=== PATIENT | male | born 1935 | race African-American/Black ===

== ENCOUNTER 2017-06-27 10:40 | Inpatient (IN) | payer OTHER ==
[~2017-06-27] VITALS: Ht 167.6 cm; Wt 85.3 kg
[2017-06-27] MEDS ORDERED: SODIUM CHLORIDE 0.9% 500 ML IV ONE (10:59)
[2017-06-27 11:31] LABS: BASOPHILS % 0.4 % (0.0-2.0); EOSINOPHILS % 2.9 % (0.0-5.0); HEMATOCRIT. 44.1 % (42.0-52.0); HEMOGLOBIN. 14.5 g/dL (14.0-18.0); LYMPHOCYTES % 25.1 % (20.0-50.0); MEAN CORPUSCULAR HEMOGLOBIN 28.1 pg (28.0-32.0); MEAN CORPUSCULAR VOLUME 85.7 fL (80.0-94.0); MEAN PLATELET VOLUME 9.6 fl (7.4-10.4); MONOCYTES % 10.5 % (2.0-8.0); NEUTROPHILS % 61.1 % (40.0-76.0); PLATELET 176 x1000/uL (130-400); RED BLOOD CELL COUNT 5.14 mill/uL (4.7-6.1); RED CELL DISTRIBUTION WIDTH 14.5 % (11.6-14.6)
[2017-06-27 11:41] LABS: CHLORIDE 107 mEq/L (98-107)
[2017-06-27 13:19] LABS: CLARITY URINE CLEAR (CLEAR); COLOR URINE YELLOW (YELLOW); KETONES URINE NEGATIVE (NEGATIVE); LEUKOCYTE ESTERASE URINE NEGATIVE (NEGATIVE); NITRITE URINE NEGATIVE (NEGATIVE); OCCULT BLOOD URINE NEGATIVE (NEGATIVE); PH URINE 6.5 (4.5-8.0); PROTEIN URINE NEGATIVE (NEGATIVE); SPECIFIC GRAVITY URINE 1.018 (1.005-1.030)
[2017-06-27] MEDS ORDERED: CLONIDINE 0.1MG TABLET PO PRN (14:00)
[2017-06-27] MEDS ORDERED: ACETAMINOPHEN 325MG TABLET PO PRN (14:00)
[2017-06-27] MEDS ORDERED: NITROGLYCERIN 0.4MG TABLET SL SL PRN (14:00)
[2017-06-27] MEDS ORDERED: DOCUSATE SODIUM 100MG CAPSULE PO PRN (14:00)
[2017-06-27] MEDS ORDERED: DIPHENHYDRAMINE 50MG/ML VIAL IV PRN (14:00)
[2017-06-27] MEDS ORDERED: GUAIFENESIN 200MG/10ML SUGAR FREE UDC PO PRN (14:00)
[2017-06-27] MEDS ORDERED: IPRATROPIUM/ALBUTEROL 0.5-3(2.5)MG/3ML NEB INH PRN (14:00)
[2017-06-27] MEDS ORDERED: MAGNESIUM/ALUMINUM HYDROXIDE/SIMETHICONE 30ML UDC PO PRN (14:00)
[2017-06-27 14:57] LABS: T4 FREE 0.73 ng/dL (0.76-1.46)
[2017-06-27 15:12] LABS: FOLIC ACID (FOLATE) SERUM 8.7 ng/mL (>5.38)
[2017-06-27] MEDS ORDERED: TRAMADOL 50MG TABLET PO PRN (16:00)
[2017-06-27] MEDS ORDERED: ONDANSETRON HCL 4MG TABLET PO PRN (16:15)
[2017-06-27] MEDS ORDERED: ONDANSETRON HCL 4MG/2ML VIAL IV PRN (16:53)
[2017-06-27 20:00] VITALS: BP 169/78
[2017-06-27 20:21] LABS: CREATINE KINASE 155 IU/L (39-308); CREATINE KINASE MB FRACTION 1.8 ng/mL (0.5-3.6)
[2017-06-27 21:00] VITALS: BP 169/78
[2017-06-27] MEDS ORDERED: FAMOTIDINE 20MG/2ML VIAL IV SCH (21:00)
[2017-06-27] MEDS ORDERED: NA PHOS,M-B/NA PHOS,DI-BA ENEMA 118ML PR PRN (21:00)
[2017-06-27] MEDS ORDERED: ZOLPIDEM TARTRATE 5MG TABLET PO PRN (21:00)
[2017-06-27] MEDS ORDERED: TERA10CA4 PO (22:21)
[2017-06-27] MEDS ORDERED: FLUO-124 PO (22:21)
[2017-06-27] MEDS ORDERED: ALBU18HF2 IH (22:21)
[2017-06-27] MEDS ORDERED: LTMX5 LEFTEYE (22:21)
[2017-06-27] MEDS ORDERED: BECL10.62 IH (22:21)
[2017-06-27] MEDS ORDERED: MONT10TA24 PO (22:21)
[2017-06-27] MEDS ORDERED: DONE5TAB33 PO (22:21)
[2017-06-27] MEDS ORDERED: EPIN5DRO EACHEYE (22:21)
[2017-06-27] MEDS ORDERED: LOVA40TA73 PO (22:21)
[2017-06-27] MEDS: SODIUM CHLORIDE 0.9% 1,000 ML IV SCH (22:32)
[2017-06-28] VITALS: BP 137/55
[2017-06-28 00:28] LABS: CREATINE KINASE MB FRACTION 1.6 ng/mL (0.5-3.6)
[2017-06-28 04:00] VITALS: BP 142/59
[2017-06-28 08:00] VITALS: BP 146/67
[2017-06-28] MEDS: SODIUM CHLORIDE 0.9% 1,000 ML IV SCH (08:51)
[2017-06-28] MEDS ORDERED: ASPIRIN 325MG EC TABLET PO SCH (09:00)
[2017-06-28] MEDS ORDERED: ENOXAPARIN 40MG/0.4ML SYR SUBCUT SCH (09:00)
[2017-06-28] MEDS ORDERED: FAMOTIDINE 20MG/2ML VIAL IV SCH (09:00)
[2017-06-28 10:32] LABS: *AMPHETAMINES SCREEN URINE NEGATIVE (NEGATIVE); *BARBITURATES SCREEN URINE NEGATIVE (NEGATIVE); *BENZODIAZEPINES SCREEN URINE NEGATIVE (NEGATIVE); *COCAINE SCREEN URINE NEGATIVE (NEGATIVE); CANNABINOID URINE SCREEN NEGATIVE (NEGATIVE); METHADONE URINE SCREEN NEGATIVE (NEGATIVE); OPIATES URINE SCREEN NEGATIVE (NEGATIVE); PHENCYCLIDINE URINE SCREEN NEGATIVE (NEGATIVE)
[2017-06-28] MEDS ORDERED: DEXTROSE 50% WATER 50ML SYRINGE IV PRN (11:30)
[2017-06-28 12:00] VITALS: BP 140/71
[2017-06-28 12:31] LABS: BASOPHILS % 0.4 % (0.0-2.0); EOSINOPHILS % 2.3 % (0.0-5.0); HEMATOCRIT. 41.6 % (42.0-52.0); HEMOGLOBIN. 13.7 g/dL (14.0-18.0); LYMPHOCYTES % 21.1 % (20.0-50.0); MEAN CORPUSCULAR HEMOGLOBIN 27.9 pg (28.0-32.0); MEAN CORPUSCULAR VOLUME 84.6 fL (80.0-94.0); MEAN PLATELET VOLUME 9.7 fl (7.4-10.4); NEUTROPHILS % 62.2 % (40.0-76.0); PLATELET 185 x1000/uL (130-400); RED BLOOD CELL COUNT 4.92 mill/uL (4.7-6.1); RED CELL DISTRIBUTION WIDTH 14.5 % (11.6-14.6)
[2017-06-28] MEDS: BLOOD SUGAR DIAGNOSTIC STRIP TEST SCH ×2 (12:40→17:54)
[2017-06-28 12:50] LABS: CHLORIDE 107 mEq/L (98-107)
[2017-06-28 13:00] VITALS: BP 137/65
[2017-06-28] MEDS: INSULIN LISPRO 100 UNITS/ML SUBCUT SCH ×2 (13:10→17:54)
[2017-06-28 17:13] VITALS: BP 137/63
== END 2017-06-28 18:46 | disposition short-term general hospital (02) | DRG 682 ==
LOC: ER 10:40 → 7WST 11:55 → EDBEDREQTM 11:59 → EDBEDREQ 11:59 → SUPCPDRO 13:45 → ENRESERV 20:17
PROVIDERS: ADMIT Internal Medicine; ATTEND Internal Medicine
DX: N17.0 Acute kidney failure with tubular necrosis (principal); G92 Toxic encephalopathy; E11.22 Type 2 diabetes mellitus with diabetic chronic kidney disease; E44.1 Mild protein-calorie malnutrition; F03.90 Unspecified dementia, unspecified severity, without behavioral disturbance, psychotic disturbance, mood disturbance, and anxiety; I12.9 Hypertensive chronic kidney disease with stage 1 through stage 4 chronic kidney disease, or unspecified chronic kidney disease; N18.9 Chronic kidney disease, unspecified; J44.9 Chronic obstructive pulmonary disease, unspecified; Z98.42 Cataract extraction status, left eye; Z68.30 Body mass index [BMI] 30.0-30.9, adult
CPT/HCPCS: 36415; 70450; 71045; 80053; 80061; 80305; 81003; 82550; 82553; 82607; 82746; 82962; 83036; 83540; 83550; 84439; 84443; 84484; 85025; 93005; 93970; 96360; 96361; 99285; J1650; J3490; J7030; J7040